=== PATIENT | female | born 2000 | race Caucasian/White ===

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

== ENCOUNTER 2019-02-21 20:41 | Emergency (ER) | payer MEDICAID ==
[~2019-02-21] VITALS: Ht 152.4 cm; Wt 43.3 kg
[2019-02-21 20:57] VITALS: Ht 152.4 cm; Wt 43.3 kg
[2019-02-21 22:01] VITALS: BP 115/71
== END 2019-02-21 22:01 | disposition home or self-care (01) ==
LOC: ED 20:41
DX: N39.0 Urinary tract infection, site not specified (principal)